=== PATIENT | female | born 1945 | race Caucasian/White ===

== ENCOUNTER → 2020-08-25 | Day surgery (SDC) | payer MEDICARE ==
[~2020-08-25] MED LIST: LIDOCAINE HCL 1% 20ML VIAL (Pyxis) INJ ONE; SODIUM BICARBONATE 4% (2.4MEQ) 5ML VIAL IV ONE
== END | disposition home or self-care (01) ==
LOC: RAD 08:33
PROVIDERS: ATTEND Internal Medicine
DX: E04.2 Nontoxic multinodular goiter (principal); R59.9 Enlarged lymph nodes, unspecified; Z79.899 Other long term (current) drug therapy
CPT/HCPCS: 10005; 10006; 76641; 88172; 88173; J3490

== ENCOUNTER 2020-11-27 10:02 | Inpatient (IN) | payer BC, MEDICARE ==
[~2020-11-27] VITALS: Ht 165.1 cm; Wt 66.0 kg
[2020-11-27 11:02] LABS: HEMATOCRIT. 36.4 % (36.0-48.0); HEMOGLOBIN. 12.9 g/dL (12.0-16.0); MEAN CORPUSCULAR HEMOGLOBIN 32.6 pg (28.0-32.0); MEAN CORPUSCULAR VOLUME 92.3 fL (81.0-99.0); MEAN PLATELET VOLUME 7.8 fl (7.4-10.4); PLATELET 220 x1000/uL (130-400); RED BLOOD CELL COUNT 3.95 mill/uL (4.2-5.4); RED CELL DISTRIBUTION WIDTH 13.9 % (11.6-14.6)
[2020-11-27 11:04] LABS: CHLORIDE 101 mEq/L (98-107)
[2020-11-27 12:08] LABS: PLATELET ESTIMATE NORMAL
[2020-11-27] MEDS ORDERED: ACETAMINOPHEN 325MG TABLET PO ONE (13:15)
[2020-11-27] MEDS ORDERED: LORAZEPAM 2MG/ML CPJ IV ONE (13:15)
[2020-11-27] MEDS ORDERED: LORAZEPAM 1MG TABLET PO ONE (13:15)
[2020-11-27 16:55] LABS: T4 FREE 1.28 ng/dL (0.76-1.46)
[2020-11-27] MEDS ORDERED: ZOLPIDEM TARTRATE 5MG TABLET PO PRN (19:30)
[2020-11-27] MEDS ORDERED: MAGNESIUM/ALUMINUM HYDROXIDE/SIMETHICONE 30ML UDC PO PRN (19:30)
[2020-11-27] MEDS ORDERED: CLONIDINE 0.1MG TABLET PO PRN (19:30)
[2020-11-27] MEDS ORDERED: DIPHENHYDRAMINE 50MG/ML VIAL IV PRN (19:30)
[2020-11-27] MEDS ORDERED: GUAIFENESIN 200MG/10ML SUGAR FREE UDC PO PRN (19:30)
[2020-11-27] MEDS ORDERED: LORAZEPAM 0.5MG TABLET PO PRN (19:30)
[2020-11-27] MEDS ORDERED: ACETAMINOPHEN 325MG TABLET PO PRN (19:30)
[2020-11-27] MEDS ORDERED: ENOXAPARIN 40MG/0.4ML SYR SUBCUT SCH (21:00)
[2020-11-27] MEDS: ACETAMINOPHEN 325MG TABLET PO PRN (21:46)
[2020-11-27] MEDS: SODIUM CHLORIDE 0.9% INJ 3ML FLUSH IVF SCH (22:04)
[2020-11-28] MEDS: ONDANSETRON HCL 4MG/2ML INJ IV PRN ×2 (00:20→10:02)
[2020-11-28] MEDS: SODIUM CHLORIDE 0.9% INJ 3ML FLUSH IVF SCH ×2 (06:05→14:13)
[2020-11-28] MEDS ORDERED: LEVOTHYROXINE SODIUM 88MCG TABLET PO SCH (06:30)
[2020-11-28] MEDS: ACETAMINOPHEN 325MG TABLET PO PRN (10:02)
[2020-11-28 12:10] LABS: CLARITY URINE CLEAR (CLEAR); COLOR URINE YELLOW (YELLOW); KETONES URINE 1+ (NEGATIVE); LEUKOCYTE ESTERASE URINE TRACE (NEGATIVE); NITRITE URINE NEGATIVE (NEGATIVE); OCCULT BLOOD URINE NEGATIVE (NEGATIVE); PH URINE 6.5 (4.5-8.0); PROTEIN URINE TRACE (NEGATIVE); UROBILINOGEN URINE 0.2 E.U./dL (0.2-1.0)
[2020-11-28 12:56] LABS: BASOPHILS % 0.1 % (0.0-2.0); EOSINOPHILS % 0.3 % (0.0-5.0); HEMATOCRIT. 40.8 % (36.0-48.0); HEMOGLOBIN. 13.8 g/dL (12.0-16.0); LYMPHOCYTES % 10.1 % (20.0-50.0); MEAN CORPUSCULAR HEMOGLOBIN 31.8 pg (28.0-32.0); MEAN CORPUSCULAR VOLUME 94.1 fL (81.0-99.0); MEAN PLATELET VOLUME 8.2 fl (7.4-10.4); NEUTROPHILS % 79.5 % (40.0-76.0); PLATELET 200 x1000/uL (130-400); RED BLOOD CELL COUNT 4.34 mill/uL (4.2-5.4); RED CELL DISTRIBUTION WIDTH 14.3 % (11.6-14.6)
[2020-11-28 15:30] VITALS: BP 120/92
== END 2020-11-28 21:41 | disposition left against medical advice (07) | DRG 292 ==
LOC: ER 10:02 → MICUSO 11:38 → 7EST 11-28 14:44 → MICUSO 11-28 15:38
PROVIDERS: ADMIT Internal Medicine; ATTEND Internal Medicine
DX: I11.0 Hypertensive heart disease with heart failure (principal); E87.1 Hypo-osmolality and hyponatremia; E03.9 Hypothyroidism, unspecified; D72.825 Bandemia; I50.9 Heart failure, unspecified; Z53.29 Procedure and treatment not carried out because of patient's decision for other reasons; F41.1 Generalized anxiety disorder
CPT/HCPCS: 36415; 71045; 80053; 81003; 83880; 84439; 84443; 84484; 85025; 93005; 93970; 99285; J1650; J2060; J2405